=== PATIENT | female | born 1960 | race Caucasian/White ===

== ENCOUNTER 2018-09-04 16:05 | Outpatient (REF) | payer BC, SELFPAY ==
[2018-09-04 22:18] LABS: Anion Gap 11.1 mmol/L (3-11); BUN 27 mg/dL (7-18); CO2 24.9 mmol/L (21.0-32.0); CREATININE 1.04 mg/dL (0.55-1.02); Calcium 9.3 mg/dL (8.5-10.1); Chloride 103 mmol/L (98-107); Estimated GFR 54.43 (mL/min/1.73m2); FREE T4 1.03 ng/dL (0.76-1.46); Glucose 120 mg/dL (70-100); Potassium 4.3 mmol/L (3.5-5.1); Sodium 139 mmol/L (136-145); TSH 3.45 uIU/mL (0.358-3.74)
== END 2018-09-04 16:25 ==
LOC: NCHCN 16:05
PROVIDERS: Visit Provider Family Medicine
DX: I10 Essential (primary) hypertension (principal); E03.9 Hypothyroidism, unspecified
CPT/HCPCS: 80048; 84439; 84443

== ENCOUNTER 2020-02-05 16:22 | Outpatient (REF) | payer SELFPAY ==
[2020-02-05 21:58] LABS: Anion Gap 8.9 mmol/L (3-11); BUN 19 mg/dL (7-18); CO2 28.1 mmol/L (21.0-32.0); CREATININE 1.08 mg/dL (0.55-1.02); Calcium 9.4 mg/dL (8.5-10.1); Chloride 103 mmol/L (98-107); Estimated GFR 51.93 (mL/min/1.73m2); Glucose 100 mg/dL (74-106); Potassium 4.2 mmol/L (3.5-5.1); Sodium 140 mmol/L (136-145); TSH 5.27 uIU/mL (0.36-3.74)
== END 2020-02-05 16:42 ==
LOC: NCHCN 16:22
PROVIDERS: Visit Provider Family Medicine
DX: E03.9 Hypothyroidism, unspecified (principal); I10 Essential (primary) hypertension
CPT/HCPCS: 80048; 84439; 84443

== ENCOUNTER 2020-02-14 11:59 | Outpatient (REF) | payer SELFPAY ==
--- NOTE | 2020-02-14 10:00 | PAPFT_PTH ---
PATIENT: Nicolasa Ann LOC: [facility]#:[id number] AGE/SX: 59/F ROOM: RE02/14/[address]: Manuel Goodman : 1960 BED: DIS: 02/14/2020 SPEC #: [id number] RECD: 02/18/20 12:55 STATUS: JAMA REQ #: [id number] ARASH: 02/14/20 10:[address]: Manuel Goodman DEPT: [facility] Cytology RECD BY: Abi Verma ENTERED: 02/18/20 12:56 SP TYPE: PAPFT OTHR DR: Unknown,Unknown Tissues: 1 - CX/ENDOCX FOR PAP SMEARS Procedures: PAP THIN PREP/[facility] Screening HPV DNA PROBE Comments: [id number]
== END 2020-02-14 12:19 ==
LOC: NCHCN 11:59
PROVIDERS: Visit Provider Physician Assistant Medical
DX: R87.616 Satisfactory cervical smear but lacking transformation zone; Z11.51 Encounter for screening for human papillomavirus (HPV)
CPT/HCPCS: 88142; 87624

== ENCOUNTER 2021-04-15 22:08 | Outpatient (REF) | payer BC, SELFPAY ==
[2021-04-15 19:44] LABS: Anion Gap 6.1 mmol/L (3-11); BUN 17 mg/dL (7-18); CO2 28.9 mmol/L (21.0-32.0); Calcium 9.2 mg/dL (8.5-10.1); Chloride 108 mmol/L (98-107); Estimated GFR 56.56 (mL/min/1.73m2); Glucose 81 mg/dL (74-106); Potassium 4.7 mmol/L (3.5-5.1); Sodium 143 mmol/L (136-145); TSH 5.58 uIU/mL (0.36-3.74)
== END 2021-04-15 22:09 | disposition home or self-care (01) ==
LOC: NCHCN 22:08
PROVIDERS: Visit Provider Nurse Practitioner Family
DX: I10 Essential (primary) hypertension (principal); E03.9 Hypothyroidism, unspecified
CPT/HCPCS: 80048; 84443